=== PATIENT | female | born 1960 | race Hispanic/Latino ===

== ENCOUNTER 2018-02-12 08:59 | Outpatient (CLI) | payer BC ==
--- NOTE | 2018-02-12 10:17 | RAD ---
RIGHT SHOULDER THREE VIEWS: Indication: Pain. 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 No fracture or dislocation. IMPRESSION: 1. No acute osseous abnormality of the right shoulder. 2. Mild AC joint osteoarthritis. POS: [facility]
== END 2018-02-12 09:00 | disposition home or self-care (01) ==
LOC: BICMAMMO 08:59
PROVIDERS: ATTEND Internal Medicine
DX: Z12.31 Encounter for screening mammogram for malignant neoplasm of breast (principal); M25.511 Pain in right shoulder; M19.011 Primary osteoarthritis, right shoulder; R92.1 Mammographic calcification found on diagnostic imaging of breast
CPT/HCPCS: 77063; 77067

== ENCOUNTER 2019-06-10 08:22 | Outpatient (CLI) | payer BC ==
--- NOTE | 2019-06-10 09:00 | ULT ---
SONOGRAM ABDOMEN COMPLETE: Date: 06/10/2019 HISTORY: Abnormal liver function tests. FINDINGS: Gallbladder has a normal appearance without stones. Common duct is 0.4 cm. Liver within normal limits . No focal mass or intrahepatic biliary dilatation. No free fluid. The spleen, kidneys, and visualized portions of the abdominal aorta, IVC, and pancreas are within nor mal limits. IMPRESSION: Normal exam. POS: [facility]
== END 2019-06-10 08:23 | disposition home or self-care (01) ==
LOC: BICULT 08:22
PROVIDERS: ATTEND Family Medicine
DX: R94.5 Abnormal results of liver function studies (principal)
CPT/HCPCS: 93975

== ENCOUNTER 2019-09-09 21:18 | Emergency (ER) | payer BC ==
[2019-09-09] MEDS ORDERED: Ondansetron PF 4 MG/2 ML Vial ONE (21:37)
[2019-09-09 22:14] LABS: ALT (SGPT) 18 U/L (8-55); AST (SGOT) 26 U/L (5-34); Albumin 4.2 g/dL (3.5-5.0); Alkaline Phosphatase 83 U/L (40-110); Anion Gap 17 mmol/L (10-20); BUN (Urea Nitrogen) 9 mg/dL (9.8-20.1); Bilirubin, Total 0.5 mg/dL (0.2-1.2); CK (CPK) 73 U/L (29-168); Calc. Creatinine Clearance 0 mL/min (70-130); Calcium 9.8 mg/dL (7.8-10.44); Carbon Dioxide 20 mmol/L (22-29); Chloride 106 mmol/L (98-107); Estimated GFR-MDRD Greater than 90; Globulin 3.8 g/dL (2.4-3.5); Glucose 127 mg/dL (70-105); Lipase 23 U/L (8-78); Potassium 3.8 mmol/L (3.5-5.1); Sodium 139 mmol/L (136-145)
[2019-09-09 22:18] LABS: #Eosinphils 0.1 thou/uL (0.0-0.7); #Lymphocytes 1.1 thou/uL (1.20-3.40); #Monocytes 0.5 thou/uL (0.11-0.59); #Neutrophils 8.8 thou/uL (1.40-6.50); %Basophils 0.4 % (0.0-1.0); %Eosinophils 1.1 % (0.0-10.0); %Lymphocytes 10.3 % (21.0-51.0); %Monocytes 4.8 % (0.0-10.0); %Neutrophils 83.4 % (42.0-75.0); Hemoglobin 12.4 g/dL (12.0-16.0); Mean Corpuscular HGB CONC 32.9 g/dL (32.0-36.0); Mean Corpuscular Hemoglobin 29.7 pg (27.0-31.0); Mean Corpuscular Volume 90.1 fL (78.0-98.0); Mean Platelet Volume 7.4 fL (7.4-10.4); Platelet Count 234 thou/uL (130-400); RBC Distribution Width 11.7 % (11.5-14.5); Red Blood Cell (RBC) Count 4.19 mill/uL (4.20-5.40); White Blood Cell (WBC) Count 10.6 thou/uL (4.8-10.8)
[2019-09-09 22:41] LABS: Bilirubin Negative (Negative); Blood, Urine 2+ (Negative); Clarity Clear (Clear); Glucose, Urine (Dipstick) Normal (Negative); Leukocyte 500 Leu/uL (Negative); Mucous/LPF 1+ LPF (<2+); Nitrite Negative (Negative); Protein, Urine (Dipstick) 30 mg/dL (Neg-Trace); RBC/HPF Greater than 50 HPF (0-3); Renal Epithelial 0-3 HPF (None Seen); Squamous Epithelial 0-3 HPF (0-3); Urobilinogen Normal mg/dL (Less than 2); WBC/HPF 21-50 HPF (0-3); Yeast-Budding 1+ HPF (None Seen)
[2019-09-09 22:49] LABS: Bacteria/HPF 2+ HPF (None Seen)
[2019-09-09] MEDS ORDERED: cefTRIAXone\\ROCEPHIN 2 GM VIAL ONE (23:10)
[2019-09-09] MEDS ORDERED: Acetaminophen 500 MG TAB ONE (23:18)
--- NOTE | 2019-09-10 07:17 | RAD ---
CHEST 1 VIEW: Date: 09/09/2019 HISTORY: Dizziness, abdominal pain. FINDINGS: Lungs are clear. No pneumothorax or effusion. Cardiac silhouette and mediastinal contours within norm al limits. No acute osseous abnormality. IMPRESSION: No acute intrathoracic abnormality. POS: [facility]
--- NOTE | 2019-09-10 07:17 | CT ---
CT BRAIN WITHOUT CONTRAST: Date: 09/09/2019 HISTORY: Dizziness. Nausea, vomiting, and diarrhea. COMPARISON: None. FINDINGS: No acute hemorrhage or infarct. No midline shift or mass effect. Ventricular size and extra-axial CSF spaces are normal. Calvarium is intact. Paranasal sinuses and mastoids are clear. IMPRESSION: No acute intracranial abnormality. POS: [facility]
--- NOTE | 2019-09-18 15:48 | EKG ---
Test Reason : Blood Pressure : / mmHG Vent. Rate : 096 BPM Atrial Rate : 096 BPM P-R Int : 142 ms QRS Dur : 084 ms QT Int : 386 ms P-R-T Axes : 050 010 029 degrees QTc Int : 487 ms Normal sinus rhythm Possible Left atrial enlargement Left ventricular hypertrophy Cannot rule out Septal infarct , age undetermined Abnormal ECG Confirmed by JASPAL MANDUJANO DO ([id number]), editorial cartoonist KIMBERLI GRIMALDO ([id number]) on 09/18/2019 3:47:38 PM Referred By: Confirmed By:JASPAL MANDUJANO DO
== END 2019-09-10 00:11 | disposition home or self-care (01) ==
LOC: ERS 21:18
DX: R11.2 Nausea with vomiting, unspecified (principal); N39.0 Urinary tract infection, site not specified; R10.13 Epigastric pain; E78.5 Hyperlipidemia, unspecified; E78.00 Pure hypercholesterolemia, unspecified; E03.9 Hypothyroidism, unspecified
CPT/HCPCS: 36415; 70450; 71045; 80053; 81003; 81015; 82550; 83690; 84484; 85025; 87086; 93005; 96361; 96365; 96375; J0696; J2405

== ENCOUNTER 2020-04-19 06:55 | Outpatient (CLI) | payer BC ==
--- NOTE | 2020-04-19 08:08 | ULT ---
ULTRASOUND ABDOMEN: HISTORY: Small masses and right upper quadrant/mid epigastric area FINDINGS: The liver, spleen, gallbladder, pancreas, kidneys and visualized portions of the aorta and IVC appear normal. The common duct measures 4mm in diameter. No free fluid is seen. No significant interval change is seen since the exam of 06/10/2019. IMPRESSION: Normal exam.
== END 2020-04-19 06:56 | disposition home or self-care (01) ==
LOC: BICULT 06:55
PROVIDERS: ATTEND Nurse Practitioner Family
DX: R19.01 Right upper quadrant abdominal swelling, mass and lump (principal)
CPT/HCPCS: 93975

== ENCOUNTER 2021-09-14 08:21 | Outpatient (CLI) | payer BC | END 2021-09-14 08:22 | disposition home or self-care (01) | LOC: BICMAMMO 08:21 | PROVIDERS: ATTEND Nurse Practitioner Family | DX: Z12.31 Encounter for screening mammogram for malignant neoplasm of breast (principal) | CPT/HCPCS: 77063; 77067 ==

== ENCOUNTER 2022-09-20 08:52 | Outpatient (CLI) | payer BC | END 2022-09-20 08:53 | disposition home or self-care (01) | LOC: BICMAMMO 08:52 | PROVIDERS: ATTEND Nurse Practitioner Family | DX: Z12.31 Encounter for screening mammogram for malignant neoplasm of breast (principal) | CPT/HCPCS: 77063; 77067 ==